=== PATIENT | female | born 1980 | race Caucasian/White ===

== ENCOUNTER → 2018-11-26 | Outpatient (CLI) | payer OTHER | END | disposition home or self-care (01) | LOC: RADECHMAIN 12:24 | PROVIDERS: ATTEND Family Medicine | DX: R00.0 Tachycardia, unspecified (principal) | CPT/HCPCS: 93270 ==

== ENCOUNTER → 2019-01-15 | Outpatient (CLI) | payer OTHER ==
--- NOTE | 2019-01-16 10:04 | ECHOF ---
Referral Reason:R00.0 tachycardia MEASUREMENTS -------- HEIGHT: 170.2 cm WEIGHT: 63.5 kg BP: RVIDd: 2.7 cm (< 3.3) IVSd: 0.7 cm (0.6 - 1.1) LVIDd: 4.7 cm (3.9 - 5.3) LVPWd: 1.0 cm (0.6 - 1.1) IVSs: 1.2 cm LVIDs: 2.8 cm LVPWs: 1.7 cm LAESV Index (A-L): 17.25 ml/m Ao Diam: 3.0 cm (2.0 - 3.7) AV Cusp: 2.1 cm (1.5 - 2.6) LA Diam: 3.7 cm (2.7 - 3.8) MV EXCURSION: 24.295 mm (> 18.000) MV EF SLOPE: 182 mm/s (70 - 150) EPSS: 0.5 cm MV E Alcides: 0.90 m/s MV DecT: 179 ms MV A Alcides: 0.60 m/s MV E/A Ratio: 1.48 RAP: 5.00 mmHg RVSP: 20.85 mmHg FINDINGS -------- Sinus rhythm. This was a technically good study. The left ventricular size is normal. Left ventricular wall thickness is normal. There is normal g lobal left ventricular contractility. Overall left ventricular systolic function is normal with, an EF between 60 - 65 %. The diastolic filling pattern is normal for the age of the patient 6.66. The right ventricle is normal in size. Normal LA size by volume 22+/-6 ml/m2. The right atrial size is normal. Interatrial and interventricular septum intact. The aortic valve is trileaflet and appears structurally normal. There is no evidence of aortic regu rgitation. There is no evidence of aortic stenosis. The mitral valve is normal. There is trace mitral regurgitation. Mild tricuspid regurgitation present. There is no evidence of pulmonary hypertension. The right v entricular systolic pressure, as measured by Doppler, is 20.85mmHg. Trace/mild (physiologic) pulmonic regurgitation. The aortic root size is normal. Normal inferior vena cava with normal inspiratory collapse consistent with estimated right atrial pre ssure of 5 mmHg. There is no pericardial effusion. CONCLUSIONS -------- 1. Sinus rhythm. 2. This was a technically good study. 3. The left ventricular size is normal. 4. Left ventricular wall thickness is normal. 5. There is normal global left ventricular contractility. 6. Overall left ventricular systolic function is normal with, an EF between 60 - 65 %. 7. The diastolic filling pattern is normal for the age of the patient 6.66 8. The right ventricle is normal in size. 9. Normal LA size by volume 22+/-6 ml/m2. 10. The right atrial size is normal. 11. Interatrial and interventricular septum intact. 12. The aortic valve is trileaflet and appears structurally normal. 13. There is no evidence of aortic regurgitation. 14. There is no evidence of aortic stenosis. 15. The mitral valve is normal. 16. There is trace mitral regurgitation. 17. Mild tricuspid regurgitation present. 18. There is no evidence of pulmonary hypertension. 19. The right ventricular systolic pressure, as measured by Doppler, is 20.85mmHg. 20. Trace/mild (physiologic) pulmonic regurgitation. 21. The aortic root size is normal. 22. Normal inferior vena cava with normal inspiratory collapse consistent with estimated right atrial pressure of 5 mmHg. 23. There is no pericardial effusion. CONTENT COORDINATOR: Davina Vega RDCS
== END | disposition home or self-care (01) ==
LOC: RADECHMAIN 14:51
PROVIDERS: ATTEND Family Medicine
DX: I07.1 Rheumatic tricuspid insufficiency (principal)
CPT/HCPCS: 93306

== ENCOUNTER → 2019-03-05 | Day surgery (SDC) | payer OTHER ==
[~2019-03-05] MED LIST: ERTAPENEM 1 GM in SODIUM CHLORIDE 0.9% 50 ML IVPB STA
[2019-03-05 11:33] VITALS: BP 117/63; PULSE 77; RESP 16; TEMP 98.1
== END ==
LOC: CATHCVL 11:17
PROVIDERS: ATTEND Internal Medicine Infectious Disease
DX: N12 Tubulo-interstitial nephritis, not specified as acute or chronic (principal); B96.20 Unspecified Escherichia coli [E. coli] as the cause of diseases classified elsewhere; F17.210 Nicotine dependence, cigarettes, uncomplicated; Z87.440 Personal history of urinary (tract) infections; Z79.891 Long term (current) use of opiate analgesic; Z79.899 Other long term (current) drug therapy; Z88.2 Allergy status to sulfonamides; Z92.29 Personal history of other drug therapy; Z90.710 Acquired absence of both cervix and uterus; Z98.890 Other specified postprocedural states
CPT/HCPCS: 36410; 76937; C1751; J1335

== ENCOUNTER 2019-05-19 08:52 | Emergency (ER) | payer OTHER ==
[2019-05-19 08:59] VITALS: RESP 18
[2019-05-19] MEDS ORDERED: LORazepam 1 MG TAB PO STA (09:09)
[2019-05-19 09:46] LABS: Appearance,Urine Clear (Clear); Bilirubin,Urine Negative (Negative); Blood,Urine Negative (Negative); Color,Urine Colorless; Glucose,Urine (UA) Negative (Negative); Ketones,Urine Negative (Negative); Leukocyte Esterase,Urine Negative (Negative); Nitrite,Urine Negative (Negative); Protein,Urine Negative (Negative); Specific Gravity,Urine 1.003 (1.001-1.035); Urobilinogen,Urine <2.0 mg/dL (<2.0)
--- NOTE | 2019-05-19 09:48 | XR ---
EXAMINATION TYPE: XR chest 2V DATE OF EXAM: 05/19/2019 COMPARISON: NONE TECHNIQUE: PA and lateral views submitted. HISTORY: Shortness of breath FINDINGS: The lungs are clear and there is no pneumothorax, pleural effusion, or focal pneumonia. No overt fa ilure. Heart size normal. IMPRESSION: 1. No acute process.
[2019-05-19 09:58] LABS: ALT 16 U/L (9-52); AST 18 U/L (14-36); African American GFR (CKD) >90 (>60 ml/min/1.73 sqM); Albumin 4.4 g/dL (3.5-5.0); Alkaline Phosphatase 57 U/L (38-126); Anion Gap 11 mmol/L; Blood Urea Nitrogen 15 mg/dL (7-17); Calcium 9.6 mg/dL (8.4-10.2); Carbon Dioxide 22 mmol/L (22-30); Chloride 109 mmol/L (98-107); Glucose 98 mg/dL (74-99); Magnesium 1.9 mg/dL (1.6-2.3); Non-African American GFR(CKD) >90 (>60 ml/min/1.73 sqM); Potassium 3.7 mmol/L (3.5-5.1); Sodium 142 mmol/L (137-145); Total Bilirubin 0.7 mg/dL (0.2-1.3); Total Protein 7.3 g/dL (6.3-8.2)
[2019-05-19 09:59] LABS: D-Dimer 0.47 mg/L FEU (<0.60); INR 0.9 (<1.2); Partial Thromboplastin Time 26.2 sec (22.0-30.0); Prothrombin Time 9.8 sec (9.0-12.0)
[2019-05-19 10:08] LABS: Basophils % (A) 0 %; Eosinophils # (A) 0.1 k/uL (0-0.7); Eosinophils % (A) 2 %; HCT 38.6 % (34.0-46.0); HGB 13.6 gm/dL (11.4-16.0); Lymphocytes % (A) 35 %; MCH 32.2 pg (25.0-35.0); MCHC 35.3 g/dL (31.0-37.0); MCV 91.3 fL (80.0-100.0); Mean Platelet Volume 11.1; Monocytes # (A) 0.3 k/uL (0-1.0); Monocytes % (A) 5 %; Neutrophils # (A) 3.2 k/uL (1.3-7.7); Neutrophils % (A) 56 %; Platelet Count 171 k/uL (150-450); RBC 4.23 m/uL (3.80-5.40); RDW 13.1 % (11.5-15.5); WBC 5.7 k/uL (3.8-10.6)
--- NOTE | 2019-05-19 10:57 | ED ---
General Adult HPI - General Source: patient, RN notes reviewed Mode of arrival: wheelchair Limitations: no limitations <Seb Patel - Last Filed: 05/19/19 10:50> <Enedelia Fernandes - Last Filed: 05/19/19 23:34> - General Chief complaint: Shortness of Breath Stated complaint: racing heart Time Seen by Provider: 05/19/19 09:00 - History of Present Illness Initial comments: 39-year-old female with a past medical history of hysterectomy presents to the emergency department for a chief shortness of breath. Patient states that she started to have shortness of breath 2-3 days ago. States that when she gets short of breath since feel lightheaded. She saw her doctor yesterday and had an EKG done which was normal. They had spoken about following up with cardiology. Patient denies any chest pain whatsoever. Denies symptoms worsening on exertion. Patient admits to smoking, denies previous heart problems, h yperlipidemia, hypercholesterolemia, hypertension. Patient states she feels very anxious lately. States that her 7 years ago and she has been raising her 3 kids on her own. States they are all going to different schools and she has had trouble keeping up with this.Patient has no other complaints at this time including chest pain, abdominal pain, nausea or vomiting, headache, or visual changes. (Seb Patel) - Related Data Home Medications Medication Instructions Recorded Confirmed No Known Home Medications 10/24/14 03/05/19 Allergies Allergy/AdvReac Type Severity Reaction Status Date / Time sulfamethoxazole Allergy Severe Swelling Verified 03/05/19 11:30 [From Bactrim] trimethoprim [From Bactrim] Allergy Severe Swelling Verified 03/05/19 11:30 Review of Systems ROS Other: All systems not noted in ROS Statement are negative. <Seb Patel - Last Filed: 05/19/19 10:50> ROS Other: All systems not noted in ROS Statement are negative. <Enedelia Fernandes - Last Filed: 05/19/19 23:34> ROS Statement: Those systems with pertinent positive or pertinent negative responses have been documented in the HPI. Past Medical History Additional Past Medical History / Comment(s): urine retention History of Any Multi-Drug Resistant Organisms: None Reported Past Surgical History: Hysterectomy Additional Past Surgical History / Comment(s): bladder sling Past Psychological History: No Psychological Hx Reported Smoking Status: Current every day smoker Past Alcohol Use History: None Reported, Heavy Past Drug Use History: Marijuana <Seb Patel - Last Filed: 05/19/19 10:50> General Exam Limitations: no limitations General appearance: alert, in no apparent distress Head exam: Present: atraumatic, normocephalic, normal inspection Eye exam: Present: normal appearance, PERRL, EOMI. Absent: scleral icterus, conjunctival injection, periorbital swelling ENT exam: Present: normal exam, mucous membranes moist Neck exam: Present: normal inspection, full ROM. Absent: tenderness, meningismus, lymphadenopathy Respiratory exam: Present: normal lung sounds bilaterally. Absent: respiratory distress, wheezes, rales, rhonchi, stridor Cardiovascular Exam: Present: regular rate, normal rhythm, normal heart sounds. Absent: systolic murmur, diastolic murmur, rubs, gallop, clicks GI/Abdominal exam: Present: soft, normal bowel sounds. Absent: distended, tenderness, guarding, rebound, rigid Neurological exam: Present: alert Psychiatric exam: Present: normal affect, normal mood <Seb Patel - Last Filed: 05/19/19 10:50> Course Vital Signs 05/19/19 05/19/19 08:53 11:09 Temperature 97.5 F L 98.5 F Pulse Rate 71 70 Respiratory 18 18 Rate Blood Pressure 113/78 110/65 O2 Sat by Pulse 100 98 Oximetry EKG Findings - EKG Comments: EKG Findings:: NSR, vent rate 63, GA interval 126, QRS 90, QTc 442 <Seb Patel - Last Filed: 05/19/19 10:50> Medical Decision Making - Lab Data Result diagrams: 05/19/19 09:28 05/19/19 09:28 <Seb Patel - Last Filed: 05/19/19 10:50> - Lab Data Result diagrams: 05/19/19 09:28 05/19/19 09:28 <Enedelia Fernandes - Last Filed: 05/19/19 23:34> - Medical Decision Making Vitals are stable. Patient is 100% on room air. Patient is not experiencing any respiratory distress. Respirations are even and unlabored. Patient is noted to be anxious about this and was given a milligram of Ativan. EKG unremarkable. No evidence of ST elevation or depression. CBC CMP and [place]. Troponin is negative. D-dimer is within normal limits. I do not have high suspicion for PE. Urinalysis does not show any evidence of infection. Patient has a history of hysterectomy. Chest x-ray shows no acute process. I do not suspect ACS. Patient is not having any chest pain, nausea, diaphoresis. Troponin is neg ative, this would be expected to be elevated as she has had symptoms for 2-3 days. Patient has a heart score of 2, low risk patient. Patient was reevaluated and is feeling much better. Recommended she follow up with primary care in 1-2 days. Recommended to return here if she has any worsening symptoms. (Seb Patel) I was available for consultation in the emergency department. The history and physical exam were done by the midlevel provider. I was consulted for this patients care. I reviewed the case with the midlevel provider and based on their presentation of the patient, I agree with the assessment, medical decision making and plan of care as documented. Chart was dictated using [employer] dictation software. Attempts were made to correct any dictation errors however some typographical errors may persist. (Enedelia Fernandes) - Lab Data Lab Results 05/19/19 05/19/19 05/19/19 Range/Units 09:28 09:28 09:28 WBC 5.7 (3.8-10.6) k/uL RBC 4.23 (3.80-5.40) m/uL Hgb 13.6 (11.4-16.0) gm/dL Hct 38.6 (34.0-46.0) % MCV 91.3 (80.0-100.0) fL MCH 32.2 (25.0-35.0) pg MCHC 35.3 (31.0-37.0) g/dL RDW 13.1 (11.5-15.5) % Plt Count 171 (150-450) k/uL Neutrophils % 56 % Lymphocytes % 35 % Monocytes % 5 % Eosinophils % 2 % Basophils % 0 % Neutrophils # 3.2 (1.3-7.7) k/uL Lymphocytes # 2.0 (1.0-4.8) k/uL Monocytes # 0.3 (0-1.0) k/uL Eosinophils # 0.1 (0-0.7) k/uL Basophils # 0.0 (0-0.2) k/uL PT 9.8 (9.0-12.0) sec INR 0.9 (<1.2) APTT 26.2 (22.0-30.0) sec D-Dimer 0.47 (<0.60) mg/L FEU Sodium 142 (137-145) mmol/L Potassium 3.7 (3.5-5.1) mmol/L Chloride 109 H (98-107) mmol/L Carbon Dioxide 22 (22-30) mmol/L Anion Gap 11 mmol/L BUN 15 (7-17) mg/dL Creatinine 0.75 (0.52-1.04) mg/dL Est GFR (CKD-EPI)AfAm >90 (>60 ml/min/1.73 sqM) Est GFR (CKD-EPI)NonAf >90 (>60 ml/min/1.73 sqM) Glucose 98 (74-99) mg/dL Calcium 9.6 (8.4-10.2) mg/dL Magnesium 1.9 (1.6-2.3) mg/dL Total Bilirubin 0.7 (0.2-1.3) mg/dL AST 18 (14-36) U/L ALT 16 (9-52) U/L Alkaline Phosphatase 57 (38-126) U/L Troponin I (0.000-0.034) ng/mL NT-Pro-B Natriuret Pep pg/mL Total Protein 7.3 (6.3-8.2) g/dL Albumin 4.4 (3.5-5.0) g/dL Urine Color Urine Appearance (Clear) Urine pH (5.0-8.0) Ur Specific [place] (1.001-1.035) Urine Protein (Negative) Urine Glucose (UA) (Negative) Urine Ketones (Negative) Urine Blood (Negative) Urine Nitrite (Negative) Urine Bilirubin (Negative) Urine Urobilinogen (<2.0) mg/dL Ur Leukocyte Esterase (Negative) 05/19/19 05/19/19 05/19/19 Range/Units 09:28 09:28 09:28 WBC (3.8-10.6) k/uL RBC (3.80-5.40) m/uL Hgb (11.4-16.0) gm/dL Hct (34.0-46.0) % MCV (80.0-100.0) fL MCH (25.0-35.0) pg MCHC (31.0-37.0) g/dL RDW (11.5-15.5) % Plt Count (150-450) k/uL Neutrophils % % Lymphocytes % % Monocytes % % Eosinophils % % Basophils % % Neutrophils # (1.3-7.7) k/uL Lymphocytes # (1.0-4.8) k/uL Monocytes # (0-1.0) k/uL Eosinophils # (0-0.7) k/uL Basophils # (0-0.2) k/uL PT (9.0-12.0) sec INR (<1.2) APTT (22.0-30.0) sec D-Dimer (<0.60) mg/L FEU Sodium (137-145) mmol/L Potassium (3.5-5.1) mmol/L Chloride (98-107) mmol/L Carbon Dioxide (22-30) mmol/L Anion Gap mmol/L BUN (7-17) mg/dL Creatinine (0.52-1.04) mg/dL Est GFR (CKD-EPI)AfAm (>60 ml/min/1.73 sqM) Est GFR (CKD-EPI)NonAf (>60 ml/min/1.73 sqM) Glucose (74-99) mg/dL Calcium (8.4-10.2) mg/dL Magnesium (1.6-2.3) mg/dL Total Bilirubin (0.2-1.3) mg/dL AST (14-36) U/L ALT (9-52) U/L Alkaline Phosphatase (38-126) U/L Troponin I <0.012 (0.000-0.034) ng/mL NT-Pro-B Natriuret Pep 30 pg/mL Total Protein (6.3-8.2) g/dL Albumin (3.5-5.0) g/dL Urine Color Colorless Urine Appearance Clear (Clear) Urine pH 7.0 (5.0-8.0) Ur Specific [place] 1.003 (1.001-1.035) Urine Protein Negative (Negative) Urine Glucose (UA) Negative (Negative) Urine Ketones Negative (Negative) Urine Blood Negative (Negative) Urine Nitrite Negative (Negative) Urine Bilirubin Negative (Negative) Urine Urobilinogen <2.0 (<2.0) mg/dL Ur Leukocyte Esterase Negative (Negative) Disposition Is patient prescribed a controlled substance at d/c from ED?: No Time of Disposition: 10:56 <Seb Patel - Last Filed: 05/19/19 10:50> <Enedelia Fernandes - Last Filed: 05/19/19 23:34> Clinical Impression: Mild shortness of breath, Anxiety Disposition: HOME SELF-CARE Condition: Good Instructions (If sedation given, give patient instructions): Shortness of Breath (ED) Additional Instructions: Please follow up with primary care in 1-2 days. Return to the emergency department if you have any worsening symptoms including chest pain or worsening shortness of breath. Referrals: Domingo Lynn Jr, DO [Primary Care Provider] - 1-2 days
[2019-05-19 11:10] VITALS: BP 110/65; PULSE 70; TEMP 98.5
== END 2019-05-19 11:09 | disposition home or self-care (01) ==
LOC: EC 08:52
DX: F41.9 Anxiety disorder, unspecified (principal); R06.02 Shortness of breath; F17.200 Nicotine dependence, unspecified, uncomplicated; Z88.1 Allergy status to other antibiotic agents; Z88.2 Allergy status to sulfonamides; Z90.710 Acquired absence of both cervix and uterus
CPT/HCPCS: 36415; 71046; 80053; 81003; 83735; 83880; 84484; 85025; 85379; 85610; 85730; 93005; 99285

== ENCOUNTER 2019-05-21 07:49 | Emergency (ER) | payer OTHER ==
[2019-05-21] MEDS ORDERED: IPRATROPIUM-ALBUTEROL 3 ML NEB INHALATION STA (08:12)
[2019-05-21] MEDS ORDERED: LORazepam 1 MG TAB PO STA (08:12)
--- NOTE | 2019-05-21 08:59 | ED ---
General Adult HPI - General Chief complaint: Shortness of Breath Stated complaint: SOB Time Seen by Provider: 05/21/19 08:07 Source: patient, RN notes reviewed Mode of arrival: ambulatory Limitations: no limitations - History of Present Illness Initial comments: 39-year-old female presents emergency Department chief complaint shortness of breath. Patient states that for the last few days that she's had increasing shortness breath. She states it started right after using her friend's right hand. Patient states that she uses one time because she was attempting to quit smoking. Patient states that she has not smoked or used elevate presents then. She has no complaints of chest pain or palpitations. Patient had extensive cardiac workup including been monitored with no findings. She states she does feel that she cannot get enough air in. She does admit this is making her very anxious because she states that she is a single mother with 3 kids and she is concerned. She has no complaints of fever, chills, nausea vomiting. - Related Data Home Medications Medication Instructions Recorded Confirmed Ciprofloxacin HCl [Cipro] 500 mg PO BID 05/21/19 05/21/19 Escitalopram [Lexapro] 10 mg PO DAILY 05/21/19 05/21/19 Previous Rx's Medication Instructions Recorded Albuterol Sulfate [Proair Hfa] 1 - 2 puff INHALATION Q4HR PRN #1 05/21/19 inhaler LORazepam [Ativan] 0.5 mg PO TID PRN 3 Days #9 tab 05/21/19 predniSONE 50 mg PO DAILY #5 tab 05/21/19 Allergies Allergy/AdvReac Type Severity Reaction Status Date / Time sulfamethoxazole Allergy Severe Swelling Verified 05/21/19 09:00 [From Bactrim] trimethoprim [From Bactrim] Allergy Severe Swelling Verified 05/21/19 09:00 Review of Systems ROS Statement: Those systems with pertinent positive or pertinent negative responses have been documented in the HPI. ROS Other: All systems not noted in ROS Statement are negative. Past Medical History Additional Past Medical History / Comment(s): urine retention History of Any Multi-Drug Resistant Organisms: None Reported Past Surgical History: Hysterectomy Additional Past Surgical History / Comment(s): bladder sling Past Psychological History: No Psychological Hx Reported Smoking Status: Current every day smoker Past Alcohol Use History: None Reported, Heavy Past Drug Use History: Marijuana General Exam Limitations: no limitations General appearance: alert, in no apparent distress, anxious Head exam: Present: atraumatic, normocephalic, normal inspection Eye exam: Present: normal appearance, PERRL, EOMI. Absent: scleral icterus, conjunctival injection, periorbital swelling ENT exam: Present: normal exam, normal oropharynx, mucous membranes moist Neck exam: Present: normal inspection, full ROM. Absent: tenderness, meningismus, lymphadenopathy Respiratory exam: Present: wheezes. Absent: normal lung sounds bilaterally, respiratory distress, rales, rhonchi, stridor Cardiovascular Exam: Present: regular rate, normal rhythm, normal heart sounds. Absent: systolic murmur, diastolic murmur, rubs, gallop, clicks Neurological exam: Present: alert, oriented X3, CN II-XII intact Psychiatric exam: Present: anxious Skin exam: Present: warm, dry, intact, normal color. Absent: rash Course Vital Signs 05/21/19 05/21/19 05/21/19 07:54 08:09 08:56 Temperature 97.6 F Pulse Rate 71 78 Respiratory 22 20 Rate Blood Pressure 146/71 O2 Sat by Pulse 98 Oximetry 05/21/19 05/21/19 09:11 09:26 Temperature 98.2 F Pulse Rate 74 72 Respiratory 18 Rate Blood Pressure 115/66 O2 Sat by Pulse 98 Oximetry Medical Decision Making - Medical Decision Making Chest x-ray does not reveal any evidence of infiltrate. Patient had complete workup prior to this which is negative labs including d-dimer and troponin EKG was unremarkable. Patient felt temperature DuoNeb treatment. Patient does have underlying anxiety which is also improved. Patient be discharged with follow- up. Return parameters were discussed. Disposition Clinical Impression: Acute bronchitis, Anxiety Disposition: HOME SELF-CARE Condition: Stable Instructions (If sedation given, give patient instructions): Bronchospasm (ED), Acute Bronchitis (ED) Additional Instructions: Please return to the Emergency Department if symptoms worsen or any other concerns. Prescriptions: LORazepam [Ativan] 0.5 mg PO TID PRN 3 Days #9 tab PRN Reason: Anxiety predniSONE 50 mg PO DAILY #5 tab Albuterol Sulfate [Proair Hfa] 1 - 2 puff INHALATION Q4HR PRN #1 inhaler PRN Reason: difficulty in breathing Is patient prescribed a controlled substance at d/c from ED?: Yes When asked, does pt state using other controlled substances?: No If prescribed controlled substance>3 days was MAPS reviewed?: Prescribed <3 Days Referrals: Domingo Lynn Jr, DO [Primary Care Provider] - 1-2 days Time of Disposition: 09:42
[2019-05-21 09:27] VITALS: BP 115/66; PULSE 72; RESP 18; TEMP 98.2
--- NOTE | 2019-05-21 09:28 | XR ---
EXAMINATION TYPE: XR chest 2V DATE OF EXAM: 05/21/2019 COMPARISON: 05/19/2019 HISTORY: Chest pain TECHNIQUE: Frontal and lateral views of the chest are obtained. FINDINGS: There is no focal air space opacity. No evidence for pneumothorax. No pleural effusion. The cardiac silhouette size is within normal limits. The osseous structures are grossly intact. IMPRESSION: 1. No acute cardiopulmonary process.
== END 2019-05-21 09:45 | disposition home or self-care (01) ==
LOC: EC 07:49
DX: J20.9 Acute bronchitis, unspecified (principal); F41.9 Anxiety disorder, unspecified; F17.200 Nicotine dependence, unspecified, uncomplicated; Z79.899 Other long term (current) drug therapy; Z88.1 Allergy status to other antibiotic agents; Z88.2 Allergy status to sulfonamides
CPT/HCPCS: 71046; 94640; 99285

== ENCOUNTER → 2019-06-04 | Outpatient (CLI) | payer OTHER ==
--- NOTE | 2019-06-04 12:03 | CT ---
EXAMINATION TYPE: CT abdomen pelvis wo con DATE OF EXAM: 06/04/2019 COMPARISON: None HISTORY: 39-year-old female with Left flank pain CT DLP: 635 mGycm. Automated exposure control for dose reduction was used. TECHNIQUE: Contiguous axial scanning of the abdomen and pelvis without IV contrast. Coronal and sagit chey reconstructions performed. FINDINGS: Heart normal size without pericardial effusion. Lung bases clear without pleural effusion. Noncontrast appearance of the liver, gallbladder, adrenal glands, spleen, and pancreas appear within normal limits. Kidneys show no nephrolithiasis or hydronephrosis. No dilated small bowel, free fluid, or free air. Allowing for noncontrast exam, no mesenteric or retr operitoneal lymphadenopathy is identified. Normal appendix. Moderate stool burden. No pericolonic inflammatory change. Bladder under distended. Uterus surgically absent. Multiple pelvic phleboliths. Small amount of cul-de-sac free fluid is present on the right. Right ovary not clearly identified. Ho wever, multilocular cystic structure within the left adnexa measures up to 5.9 x 5.6 x 3.3 cm. Nodula r soft tissue component measures 2.2 cm. No significant surrounding fat stranding is seen. Bones: No osseous destructive process. IMPRESSION: 1. Complex cystic lesion of the left ovary measuring up to 5.9 x 5.6 x 2.3 cm. No surrounding inflam mation which would make tubo-ovarian abscess and ovarian torsion less likely. Underlying hemorrhagic cysts or a complex cystic epithelial ovarian neoplasm are differential considerations. Further clinic al correlation recommended. Consider pelvic ultrasound possibly with Dopplers to further evaluate. 2. Small amount of cul-de-sac free fluid probably reactive. 3. Uterus is surgically absent. Right ovary not clearly identified. 4. No nephrolithiasis or hydronephrosis seen.
== END | disposition home or self-care (01) ==
LOC: RADCTMAIN 11:13
PROVIDERS: ATTEND Family Medicine
DX: N83.202 Unspecified ovarian cyst, left side (principal); Z90.710 Acquired absence of both cervix and uterus; Z88.2 Allergy status to sulfonamides
CPT/HCPCS: 74176

== ENCOUNTER → 2019-06-12 | Outpatient (CLI) | payer OTHER ==
--- NOTE | 2019-06-14 13:31 | US ---
EXAMINATION TYPE: US pelvis complete transvag plus Doppler DATE OF EXAM: 06/12/2019 COMPARISON: CT CLINICAL HISTORY: 39-year-old female N83.0 OVARIAN CYST. TECHNIQUE: Transabdominal sonographic images of the pelvis were acquired. Transvaginal sonographic images were medically necessary to better assess the following anatomy: left ovary. Color Doppler and spectral waveform analysis of the left ovarian arteries and veins. Date of LMP: 2011 secondary to hysterectomy FINDINGS: EXAM MEASUREMENTS: Uterus: Surgically absent Right Ovary: not identified Left Ovary: 5.2 x 2.7 x 3.8 cm BISTRO ATTENDANT NOTES: Patient states right ovary may be surgically absent, she is not sure. 1. Uterus: Surgically absent 2. Endometrium: Surgically absent 3. Right Ovary: not identified 4. Left Ovary: 3.3 x 2.2 x 3.6 cm simple appearing, mildly lobulated cyst. No internal complexity. Spectral, color and waveform doppler imaging shows good arterial and venous flow within the left ov bebe; there is no evidence for ovarian torsion in the left ovary. 5. Bilateral Adnexa: extensive bowel noted in right adnexa 6. Posterior cul-de-sac: no free fluid IMPRESSION: 1. A 3.6 cm simple cyst remains within the left ovary. The more heterogeneous area within the left ov bebe on the 06/04/2019 CT is not seen and may have resolved in the interval. Follow-up in 6 - 8 weeks to reassess. 2. No sonographic evidence for left ovarian torsion. 3. Status post hysterectomy. Right ovary not seen and may be surgically absent per the patient.
== END | disposition home or self-care (01) ==
LOC: RADUSWWP 16:07
PROVIDERS: ATTEND Family Medicine
DX: N83.292 Other ovarian cyst, left side (principal); Z90.710 Acquired absence of both cervix and uterus
CPT/HCPCS: 76830; 76856

== ENCOUNTER 2019-06-26 14:33 | Emergency (ER) | payer OTHER ==
[2019-06-26 14:38] VITALS: TEMP 97.2
[2019-06-26] MEDS ORDERED: ALBUTEROL NEBULIZED 2.5 MG/3 ML INHALATION STA (14:57)
[2019-06-26] MEDS ORDERED: IPRATROPIUM-ALBUTEROL 3 ML NEB INHALATION STA (14:57)
--- NOTE | 2019-06-26 15:00 | ED ---
General Adult HPI - General Chief complaint: Shortness of Breath Stated complaint: SINAN Time Seen by Provider: 06/26/19 14:42 Source: patient, RN notes reviewed, old records reviewed Mode of arrival: ambulatory Limitations: no limitations - History of Present Illness Initial comments: 39-year-old female presents from outpatient urgent care for evaluation of dyspnea and left-sided chest pain. Patient states she has had dyspnea for the past one month. She developed left-sided chest pain and left thoracic pain within the past 48 hours. She states she did initially feel quite anxious and had treated her symptoms to anxiety. However she is progressively more dyspneic and feels she is unable to get a full breath. She has no history of COPD or asthma. No history DVT or PE. She is not on contraceptives medications. She has been seen by her primary care physician regarding these symptoms and was given albuterol. She is a smoker and has recently cut back to 5 cigarettes daily. No fever. No significant cough. No history of CAD. - Related Data Home Medications Medication Instructions Recorded Confirmed Ciprofloxacin HCl [Cipro] 500 mg PO BID 05/21/19 05/21/19 Escitalopram [Lexapro] 10 mg PO DAILY 05/21/19 05/21/19 Previous Rx's Medication Instructions Recorded Albuterol Sulfate [Proair Hfa] 1 - 2 puff INHALATION Q4HR PRN #1 05/21/19 inhaler LORazepam [Ativan] 0.5 mg PO TID 3 Days #9 tab 05/21/19 LORazepam [Ativan] 0.5 mg PO TID PRN 3 Days #9 tab 05/21/19 predniSONE 50 mg PO DAILY #5 tab 05/21/19 Albuterol Inhaler [Ventolin Hfa 1 - 2 puff INHALATION Q4HR PRN #1 06/26/19 Inhaler] inhaler methylPREDNISolone Dose Pack 4 mg PO DIRECTED #21 package 06/26/19 [Medrol Dose Pack] Allergies Allergy/AdvReac Type Severity Reaction Status Date / Time sulfamethoxazole Allergy Severe Swelling Verified 06/26/19 14:38 [From Bactrim] trimethoprim [From Bactrim] Allergy Severe Swelling Verified 06/26/19 14:38 Review of Systems ROS Statement: Those systems with pertinent positive or pertinent negative responses have been documented in the HPI. ROS Other: All systems not noted in ROS Statement are negative. Past Medical History Additional Past Medical History / Comment(s): urine retention History of Any Multi-Drug Resistant Organisms: None Reported Past Surgical History: Hysterectomy Additional Past Surgical History / Comment(s): bladder sling Past Psychological History: Anxiety Smoking Status: Current every day smoker Past Alcohol Use History: None Reported, Heavy Past Drug Use History: Marijuana General Exam Limitations: no limitations General appearance: alert, in no apparent distress Head exam: Present: atraumatic, normocephalic Eye exam: Present: normal appearance, PERRL ENT exam: Present: normal exam Neck exam: Present: normal inspection. Absent: tenderness, meningismus Respiratory exam: Present: decreased breath sounds, other (Patient able to speak in full sentences without dyspnea, she does have decreased air entry by laterally on lung auscultation, no wheezing). Absent: respiratory distress, wheezes Cardiovascular Exam: Present: regular rate, normal rhythm GI/Abdominal exam: Present: soft. Absent: distended, tenderness, guarding Extremities exam: Present: normal inspection, normal capillary refill. Absent: pedal edema, calf tenderness Neurological exam: Present: alert, oriented X3, CN II-XII intact. Absent: motor sensory deficit Psychiatric exam: Present: anxious Skin exam: Present: warm, dry, intact. Absent: cyanosis, diaphoretic Course Vital Signs 06/26/19 06/26/19 06/26/19 14:35 15:31 16:02 Temperature 97.2 F L Pulse Rate 95 76 Respiratory 20 18 Rate Blood Pressure 130/79 O2 Sat by Pulse 100 Oximetry 06/26/19 16:19 Temperature Pulse Rate 93 Respiratory Rate Blood Pressure O2 Sat by Pulse Oximetry EKG Findings - EKG Comments: EKG Findings:: EKG: Normal sinus rhythm, rate of 82, [place] interval 1:30, QRS duration 88, QTC 469, no ST segment elevation or depression Medical Decision Making - Medical Decision Making 39-year-old female presenting with dyspnea. Patient had been sent from urgent care for evaluation of dyspnea. She did have some associated left-sided chest pain. Which was atypical. Patient has no history of DVT or PE. No history of CAD. She is a current smoker although she is cutting back. No history of asthma. She has diminished lung sounds bilaterally. No wheezing. No hypoxia, no tachycardia. Workup was initiated, she has a normal sinus rhythm EKG with no ischemic changes. She has normal CBC, normal CMP, negative troponin and BNP. She has a mildly elevated d-dimer at 0.59. She does receive CT angiography to rule out pulmonary embolism. This is negative for pulmonary was in, no acute findings. She has close outpatient follow-up. She may require pulmonology consultation for pulmonary function tests. She will be prescribed albuterol and a short course of steroids as she states this did improve her dyspnea. - Lab Data Result diagrams: 06/26/19 15:10 06/26/19 15:10 Lab Results 06/26/19 06/26/19 06/26/19 Range/Units 15:10 15:10 15:10 WBC 7.3 (3.8-10.6) k/uL RBC 4.18 (3.80-5.40) m/uL Hgb 13.1 (11.4-16.0) gm/dL Hct 39.7 (34.0-46.0) % MCV 95.1 (80.0-100.0) fL MCH 31.5 (25.0-35.0) pg MCHC 33.1 (31.0-37.0) g/dL RDW 12.5 (11.5-15.5) % Plt Count 201 (150-450) k/uL Neutrophils % 54 % Lymphocytes % 32 % Monocytes % 6 % Eosinophils % 3 % Basophils % 3 % Neutrophils # 4.0 (1.3-7.7) k/uL Lymphocytes # 2.3 (1.0-4.8) k/uL Monocytes # 0.4 (0-1.0) k/uL Eosinophils # 0.2 (0-0.7) k/uL Basophils # 0.2 (0-0.2) k/uL PT 9.5 (9.0-12.0) sec INR 0.9 (<1.2) APTT 24.6 (22.0-30.0) sec D-Dimer 0.59 (<0.60) mg/L FEU Sodium 140 (137-145) mmol/L Potassium 4.1 (3.5-5.1) mmol/L Chloride 109 H (98-107) mmol/L Carbon Dioxide 25 (22-30) mmol/L Anion Gap 6 mmol/L BUN 17 (7-17) mg/dL Creatinine 0.65 (0.52-1.04) mg/dL Est GFR (CKD-EPI)AfAm >90 (>60 ml/min/1.73 sqM) Est GFR (CKD-EPI)NonAf >90 (>60 ml/min/1.73 sqM) Glucose 89 (74-99) mg/dL Calcium 9.4 (8.4-10.2) mg/dL Total Bilirubin 0.4 (0.2-1.3) mg/dL AST 20 (14-36) U/L ALT 13 (4-34) U/L Alkaline Phosphatase 65 (38-126) U/L Troponin I (0.000-0.034) ng/mL NT-Pro-B Natriuret Pep pg/mL Total Protein 6.9 (6.3-8.2) g/dL Albumin 4.1 (3.5-5.0) g/dL 06/26/19 06/26/19 Range/Units 15:10 15:10 WBC (3.8-10.6) k/uL RBC (3.80-5.40) m/uL Hgb (11.4-16.0) gm/dL Hct (34.0-46.0) % MCV (80.0-100.0) fL MCH (25.0-35.0) pg MCHC (31.0-37.0) g/dL RDW (11.5-15.5) % Plt Count (150-450) k/uL Neutrophils % % Lymphocytes % % Monocytes % % Eosinophils % % Basophils % % Neutrophils # (1.3-7.7) k/uL Lymphocytes # (1.0-4.8) k/uL Monocytes # (0-1.0) k/uL Eosinophils # (0-0.7) k/uL Basophils # (0-0.2) k/uL PT (9.0-12.0) sec INR (<1.2) APTT (22.0-30.0) sec D-Dimer (<0.60) mg/L FEU Sodium (137-145) mmol/L Potassium (3.5-5.1) mmol/L Chloride (98-107) mmol/L Carbon Dioxide (22-30) mmol/L Anion Gap mmol/L BUN (7-17) mg/dL Creatinine (0.52-1.04) mg/dL Est GFR (CKD-EPI)AfAm (>60 ml/min/1.73 sqM) Est GFR (CKD-EPI)NonAf (>60 ml/min/1.73 sqM) Glucose (74-99) mg/dL Calcium (8.4-10.2) mg/dL Total Bilirubin (0.2-1.3) mg/dL AST (14-36) U/L ALT (4-34) U/L Alkaline Phosphatase (38-126) U/L Troponin I <0.012 (0.000-0.034) ng/mL NT-Pro-B Natriuret Pep 45 pg/mL Total Protein (6.3-8.2) g/dL Albumin (3.5-5.0) g/dL Disposition Clinical Impression: Dyspnea Disposition: HOME SELF-CARE Condition: Good Instructions (If sedation given, give patient instructions): Bronchospasm (ED), Dyspnea (ED) Prescriptions: methylPREDNISolone Dose Pack [Medrol Dose Pack] 4 mg PO DIRECTED #21 package Albuterol Inhaler [Ventolin Hfa Inhaler] 1 - 2 puff INHALATION Q4HR PRN #1 inhaler PRN Reason: Shortness Of Breath Is patient prescribed a controlled substance at d/c from ED?: No Referrals: Domingo Lynn Jr, DO [Primary Care Provider] - 1-2 days Alan Love MD [STAFF PHYSICIAN] - 1-2 days Time of Disposition: 16:32
[2019-06-26 15:27] LABS: Basophils # (A) 0.2 k/uL (0-0.2); Basophils % (A) 3 %; Eosinophils # (A) 0.2 k/uL (0-0.7); Eosinophils % (A) 3 %; HCT 39.7 % (34.0-46.0); HGB 13.1 gm/dL (11.4-16.0); Lymphocytes # (A) 2.3 k/uL (1.0-4.8); Lymphocytes % (A) 32 %; MCH 31.5 pg (25.0-35.0); MCHC 33.1 g/dL (31.0-37.0); MCV 95.1 fL (80.0-100.0); Monocytes # (A) 0.4 k/uL (0-1.0); Monocytes % (A) 6 %; Neutrophils % (A) 54 %; Platelet Count 201 k/uL (150-450); RBC 4.18 m/uL (3.80-5.40); RDW 12.5 % (11.5-15.5); WBC 7.3 k/uL (3.8-10.6)
[2019-06-26 15:34] VITALS: RESP 18
--- NOTE | 2019-06-26 15:34 | XR ---
EXAMINATION TYPE: XR chest 2V DATE OF EXAM: 06/26/2019 COMPARISON: 05/21/2019 HISTORY: Shortness of breath for one month TECHNIQUE: Frontal and lateral views of the chest are obtained. FINDINGS: There is no focal air space opacity, pleural effusion, or pneumothorax seen. The cardiac silhouette size is within normal limits. The osseous structures are intact. Minimal degenerative ch anges of the thoracic spine. IMPRESSION: No acute cardiopulmonary process.
[2019-06-26 15:39] LABS: INR 0.9 (<1.2)
[2019-06-26 15:40] LABS: D-Dimer 0.59 mg/L FEU (<0.60); Partial Thromboplastin Time 24.6 sec (22.0-30.0); Prothrombin Time 9.5 sec (9.0-12.0)
[2019-06-26 15:41] LABS: ALT 13 U/L (4-34); AST 20 U/L (14-36); African American GFR (CKD) >90 (>60 ml/min/1.73 sqM); Albumin 4.1 g/dL (3.5-5.0); Alkaline Phosphatase 65 U/L (38-126); Anion Gap 6 mmol/L; Blood Urea Nitrogen 17 mg/dL (7-17); Calcium 9.4 mg/dL (8.4-10.2); Carbon Dioxide 25 mmol/L (22-30); Chloride 109 mmol/L (98-107); Glucose 89 mg/dL (74-99); Non-African American GFR(CKD) >90 (>60 ml/min/1.73 sqM); Potassium 4.1 mmol/L (3.5-5.1); Sodium 140 mmol/L (137-145); Total Bilirubin 0.4 mg/dL (0.2-1.3); Total Protein 6.9 g/dL (6.3-8.2)
--- NOTE | 2019-06-26 16:20 | CT ---
CT CHEST FOR PULMONARY EMBOLISM. EXAMINATION TYPE: CT angio chest DATE OF EXAM: 06/26/2019 INDICATION: Difficulty breathing. CT DLP: 305.1 mGycm, Automated exposure control for dose reduction was used. CONTRAST: Patient injected with 100 mL of Isovue 370. COMPARISON: None TECHNIQUE: CT of the chest is performed on a spiral scan at 2 mm thick sections. Study is performed with intravenous contrast timed for evaluation for pulmonary embolism. This will limit additional po rtions of the evaluation. 3-D MIP images reconstructed by the technologist are reviewed on the compu ter in the coronal and sagittal planes. FINDINGS: No persistent filling defects are evident to suggest an acute pulmonary embolism. No mediastinal or hilar adenopathy enlarged by CT criteria is evident. The ascending aorta diameter at the level of the main pulmonary artery is 3. cm. The main pulmonary artery diameter at the bifurc ation is 2.4 cm. Lung windows are clear. Limited CT section through the upper abdomen are unremarkable. IMPRESSIONS: 1. No acute pulmonary embolism
[2019-06-26 16:52] VITALS: BP 101/77; PULSE 84
== END 2019-06-26 16:52 | disposition home or self-care (01) ==
LOC: EC 14:33
DX: R06.00 Dyspnea, unspecified (principal); R06.02 Shortness of breath; R07.9 Chest pain, unspecified; F41.9 Anxiety disorder, unspecified; F17.210 Nicotine dependence, cigarettes, uncomplicated; Z79.899 Other long term (current) drug therapy; Z88.1 Allergy status to other antibiotic agents; Z88.2 Allergy status to sulfonamides
CPT/HCPCS: 36415; 94640; 93005; 85379; 83880; 80053; 84484; 85025; 85610; 85730; 71046; 71275; 99285; Q9967

== ENCOUNTER 2019-06-27 09:37 | Emergency (ER) | payer OTHER ==
[2019-06-27] MEDS ORDERED: diphenhydrAMINE 50 MG/ML 1 ML VIAL IVP STA (10:05)
[2019-06-27] MEDS ORDERED: FAMOTIDINE 20 MG/2 ML VIAL IV STA (10:05)
[2019-06-27] MEDS ORDERED: methylPREDNISolone SOD SUCCI 125 MG/2 ML VIAL IV STA (10:05)
[2019-06-27] MEDS ORDERED: SODIUM CHLORIDE 0.9% 1,000 ML IV STA (10:06)
--- NOTE | 2019-06-27 10:29 | ED ---
Allergic Reaction HPI - General Chief complaint: Allergic Reaction Stated complaint: allergic reaction Time Seen by Provider: 06/27/19 09:56 Source: patient Limitations: no limitations - History of Present Illness Initial Comments: Patient is a 39-year-old female presenting to emergency Department with complaints of having a possible ALLERGIC reaction. Patient states she was in the ER yesterday and had a CTA performed. Patient states she started having itching and redness late last night and did take a Benadryl sometime during the night. Patient states her symptoms have progressed and she is still itching and having burning around her chest as well as swelling around her eyes. Patient states she's never had a reaction like this before. Her only other ALLERGIES to Bactrim. Patient denies any chest pains, shortness of breath, abdominal pain, nausea, vomiting. She has no other complaints at this time. Upon arrival to ER, her vital signs are stable. - Related Data Home Medications Medication Instructions Recorded Confirmed Ciprofloxacin HCl [Cipro] 500 mg PO BID 05/21/19 05/21/19 Escitalopram [Lexapro] 10 mg PO DAILY 05/21/19 05/21/19 Previous Rx's Medication Instructions Recorded Albuterol Sulfate [Proair Hfa] 1 - 2 puff INHALATION Q4HR PRN #1 05/21/19 inhaler LORazepam [Ativan] 0.5 mg PO TID 3 Days #9 tab 05/21/19 LORazepam [Ativan] 0.5 mg PO TID PRN 3 Days #9 tab 05/21/19 predniSONE 50 mg PO DAILY #5 tab 05/21/19 Albuterol Inhaler [Ventolin Hfa 1 - 2 puff INHALATION Q4HR PRN #1 06/26/19 Inhaler] inhaler methylPREDNISolone Dose Pack 4 mg PO DIRECTED #21 package 06/26/19 [Medrol Dose Pack] methylPREDNISolone [Medrol Dose 4 mg PO DIRECTED #1 pack 06/27/19 Pack] Allergies Allergy/AdvReac Type Severity Reaction Status Date / Time sulfamethoxazole Allergy Severe Swelling Verified 06/27/19 09:44 [From Bactrim] trimethoprim [From Bactrim] Allergy Severe Swelling Verified 06/27/19 09:44 Review of Systems ROS Statement: Those systems with pertinent positive or pertinent negative responses have been documented in the HPI. ROS Other: All systems not noted in ROS Statement are negative. Past Medical History Additional Past Medical History / Comment(s): urine retention History of Any Multi-Drug Resistant Organisms: None Reported Past Surgical History: Hysterectomy Additional Past Surgical History / Comment(s): bladder sling Past Psychological History: Anxiety Smoking Status: Current every day smoker Past Alcohol Use History: None Reported Past Drug Use History: None Reported, Marijuana General Exam - General Exam Comments Initial Comments: GENERAL: Well-appearing, well-nourished and in no acute distress. HEAD: Atraumatic, normocephalic. EYES: Pupils equal round and reactive to light, extraocular movements intact, sclera anicteric, conjunctiva are normal. Patient has some mild swelling noted around bilateral eyes. ENT: TMs normal, nares patent, oropharynx clear without exudates. Moist mucous membranes. NECK: Normal range of motion, supple without lymphadenopathy or JVD. LUNGS: Breath sounds clear to auscultation bilaterally and equal. No wheezes rales or rhonchi. HEART: Regular rate and rhythm without murmurs, rubs or gallops. ABDOMEN: Soft, nontender, normoactive bowel sounds. No guarding, no rebound. No masses appreciated. : Deferred EXTREMITIES: Normal range of motion, no pitting or edema. No clubbing or cyanosis. NEUROLOGICAL: Normal speech, normal gait. PSYCH: Normal mood, normal affect. SKIN: Warm, Dry, normal turgor,. Patient has a blanching, erythematous rash along her entire chest extending up into her neck and her face. Limitations: no limitations Course Vital Signs 06/27/19 06/27/19 09:44 09:54 Temperature 98 F Pulse Rate 95 Respiratory 18 20 Rate Blood Pressure 98/67 O2 Sat by Pulse 100 Oximetry Medical Decision Making - Medical Decision Making Patient is a 39-year-old female presenting with possible ALLERGIC reaction to IV contrast that was performed yesterday. Vital signs are stable upon arrival. Patient has a blanching erythematous rash on her chest extending up to her neck and face. This consistent with an ALLERGIC rash. Patient was given IV Benadryl, steroids, Pepcid. She reports improvement in her symptoms. I discussed this is most likely reaction to the IV contrast. Patient will continue Benadryl as needed for continued itching. Patient will be given prescription for steroids if symptoms persist. She is in agreement with this plan of care. She is stable for discharge at this time. Parameters were discussed with the patient and she verbalized understanding. Case discussed with Dr. Andrade. - Lab Data Result diagrams: 06/27/19 10:10 06/27/19 10:10 Lab Results 06/27/19 06/27/19 Range/Units 10:10 10:10 WBC 6.8 (3.8-10.6) k/uL RBC 4.29 (3.80-5.40) m/uL Hgb 13.6 (11.4-16.0) gm/dL Hct 40.6 (34.0-46.0) % MCV 94.7 (80.0-100.0) fL MCH 31.6 (25.0-35.0) pg MCHC 33.4 (31.0-37.0) g/dL RDW 12.5 (11.5-15.5) % Plt Count 178 (150-450) k/uL Neutrophils % 80 % Lymphocytes % 12 % Monocytes % 3 % Eosinophils % 4 % Basophils % 1 % Neutrophils # 5.5 (1.3-7.7) k/uL Lymphocytes # 0.8 L (1.0-4.8) k/uL Monocytes # 0.2 (0-1.0) k/uL Eosinophils # 0.3 (0-0.7) k/uL Basophils # 0.1 (0-0.2) k/uL Sodium 138 (137-145) mmol/L Potassium 3.8 (3.5-5.1) mmol/L Chloride 105 (98-107) mmol/L Carbon Dioxide 26 (22-30) mmol/L Anion Gap 7 mmol/L BUN 13 (7-17) mg/dL Creatinine 0.65 (0.52-1.04) mg/dL Est GFR (CKD-EPI)AfAm >90 (>60 ml/min/1.73 sqM) Est GFR (CKD-EPI)NonAf >90 (>60 ml/min/1.73 sqM) Glucose 126 H (74-99) mg/dL Calcium 8.7 (8.4-10.2) mg/dL Total Bilirubin 0.8 (0.2-1.3) mg/dL AST 21 (14-36) U/L ALT 13 (4-34) U/L Alkaline Phosphatase 57 (38-126) U/L Total Protein 6.5 (6.3-8.2) g/dL Albumin 3.9 (3.5-5.0) g/dL Disposition Clinical Impression: Allergic reaction to contrast dye Disposition: HOME SELF-CARE Condition: Stable Instructions (If sedation given, give patient instructions): General Allergic Reaction (ED) Additional Instructions: Please return to the Emergency Department if symptoms worsen or any other concerns. May repeat Benadryl dose tonight if itching or rash increases. Take steroids if rash continues. Prescriptions: methylPREDNISolone [Medrol Dose Pack] 4 mg PO DIRECTED #1 pack Is patient prescribed a controlled substance at d/c from ED?: No Referrals: Domingo Lynn Jr, [Primary Care Provider] - 1-2 days
[2019-06-27 10:49] LABS: Basophils # (A) 0.1 k/uL (0-0.2); Basophils % (A) 1 %; Eosinophils # (A) 0.3 k/uL (0-0.7); Eosinophils % (A) 4 %; HCT 40.6 % (34.0-46.0); HGB 13.6 gm/dL (11.4-16.0); Lymphocytes # (A) 0.8 k/uL (1.0-4.8); Lymphocytes % (A) 12 %; MCH 31.6 pg (25.0-35.0); MCHC 33.4 g/dL (31.0-37.0); MCV 94.7 fL (80.0-100.0); Mean Platelet Volume 10.7; Monocytes # (A) 0.2 k/uL (0-1.0); Monocytes % (A) 3 %; Neutrophils # (A) 5.5 k/uL (1.3-7.7); Neutrophils % (A) 80 %; Platelet Count 178 k/uL (150-450); RBC 4.29 m/uL (3.80-5.40); RDW 12.5 % (11.5-15.5); WBC 6.8 k/uL (3.8-10.6)
[2019-06-27 11:02] LABS: ALT 13 U/L (4-34); AST 21 U/L (14-36); African American GFR (CKD) >90 (>60 ml/min/1.73 sqM); Albumin 3.9 g/dL (3.5-5.0); Alkaline Phosphatase 57 U/L (38-126); Anion Gap 7 mmol/L; Blood Urea Nitrogen 13 mg/dL (7-17); Calcium 8.7 mg/dL (8.4-10.2); Carbon Dioxide 26 mmol/L (22-30); Chloride 105 mmol/L (98-107); Glucose 126 mg/dL (74-99); Non-African American GFR(CKD) >90 (>60 ml/min/1.73 sqM); Potassium 3.8 mmol/L (3.5-5.1); Sodium 138 mmol/L (137-145); Total Bilirubin 0.8 mg/dL (0.2-1.3); Total Protein 6.5 g/dL (6.3-8.2)
[2019-06-27 12:01] VITALS: BP 95/58; PULSE 87; RESP 18; TEMP 97.7
== END 2019-06-27 12:02 | disposition home or self-care (01) ==
LOC: EC 09:37
DX: R21 Rash and other nonspecific skin eruption (principal); T50.8X5A Adverse effect of diagnostic agents, initial encounter; F41.9 Anxiety disorder, unspecified; F17.200 Nicotine dependence, unspecified, uncomplicated; Z88.2 Allergy status to sulfonamides; Z79.899 Other long term (current) drug therapy; Z87.448 Personal history of other diseases of urinary system
CPT/HCPCS: 99283; 96374; 96375 ×2; 96361; 36415; 80053; 85025; J1200; J2930

== ENCOUNTER 2019-07-12 00:31 | Emergency (ER) | payer OTHER ==
[2019-07-12 01:02] LABS: Appearance,Urine Cloudy (Clear); Bilirubin,Urine Negative (Negative); Blood,Urine Negative (Negative); Color,Urine Yellow; Glucose,Urine (UA) Negative (Negative); Ketones,Urine Negative (Negative); Leukocyte Esterase,Urine Trace (Negative); Mucus,Urine Occasional /hpf; Nitrite,Urine Negative (Negative); Protein,Urine Trace (Negative); RBC,Urine 3 /hpf (0-5); Specific Gravity,Urine 1.026 (1.001-1.035); Squamous Epithelial Cell,Urine 6 /hpf (0-4); WBC,Urine 2 /hpf (0-5)
--- NOTE | 2019-07-12 01:34 | ED ---
Abdominal Pain HPI - General Chief Complaint: Abdominal Pain Stated Complaint: Abd Pain, Vomiting Time Seen by Provider: 07/12/19 00:42 Source: patient Mode of arrival: wheelchair Limitations: no limitations - History of Present Illness Initial Comments: Angelita is a 39-year-old female who presents the ER today for evaluation of 2 hours of right lower quadrant pain, nausea vomiting. Patient reports she's been constipated for a few days however she had a bowel movement today. She states approximately 2 hours prior to arrival she developed nausea and vomiting and vomited for approximately one hour. Vomiting is stop the nausea has subsided but she continues to have a dull pain in her right lower quadrant. Patient states she thinks it's related to constipation but hasn't had pain like this in the past. She has no history of kidney stones. She does have a history of palpitated UTI and pyelonephritis for which she was hospitalized in March. She does still have her ovaries and appendix. She is status post hysterectomy and cholecystectomy. - Related Data Home Medications Medication Instructions Recorded Confirmed Ciprofloxacin HCl [Cipro] 500 mg PO BID 05/21/19 05/21/19 Escitalopram [Lexapro] 10 mg PO DAILY 05/21/19 05/21/19 Previous Rx's Medication Instructions Recorded Albuterol Sulfate [Proair Hfa] 1 - 2 puff INHALATION Q4HR PRN #1 05/21/19 inhaler LORazepam [Ativan] 0.5 mg PO TID 3 Days #9 tab 05/21/19 LORazepam [Ativan] 0.5 mg PO TID PRN 3 Days #9 tab 05/21/19 predniSONE 50 mg PO DAILY #5 tab 05/21/19 Albuterol Inhaler [Ventolin Hfa 1 - 2 puff INHALATION Q4HR PRN #1 06/26/19 Inhaler] inhaler methylPREDNISolone Dose Pack 4 mg PO DIRECTED #21 package 06/26/19 [Medrol Dose Pack] methylPREDNISolone [Medrol Dose 4 mg PO DIRECTED #1 pack 06/27/19 Pack] Allergies Allergy/AdvReac Type Severity Reaction Status Date / Time sulfamethoxazole Allergy Severe Swelling Verified 07/12/19 00:39 [From Bactrim] trimethoprim [From Bactrim] Allergy Severe Swelling Verified 07/12/19 00:39 iodine AdvReac Swelling Verified 02/02/20 02:07 Review of Systems ROS Statement: Those systems with pertinent positive or pertinent negative responses have been documented in the HPI. ROS Other: All systems not noted in ROS Statement are negative. Past Medical History Additional Past Medical History / Comment(s): urine retention History of Any Multi-Drug Resistant Organisms: None Reported Past Surgical History: Hysterectomy Additional Past Surgical History / Comment(s): bladder sling Past Psychological History: Anxiety Smoking Status: Current every day smoker Past Alcohol Use History: None Reported Past Drug Use History: None Reported, Marijuana General Exam - General Exam Comments Initial Comments: Physical Exam GENERAL: Patient is well-developed and well-nourished. Patient appears uncomfortable HENT: Normocephalic, Atraumatic. EYES: PERRL, EOMI PULMONARY: Unlabored respirations. CARDIOVASCULAR: RRR Warm and well perfused extremities ABDOMEN: Non-distended Tenderness to palpation in the right lower quadrant, rebound tenderness noted SKIN: No rashes or bruising : Deferred NEUROLOGIC: Alert and oriented Normal speech Normal gait MUSCULOSKELETAL: Moving all extremities with no apparent injury PSYCHIATRIC: No SI/HI Limitations: no limitations Course Vital Signs 07/12/19 07/12/19 00:37 06:30 Temperature 97.8 F 97.9 F Pulse Rate 68 67 Respiratory 18 21 Rate Blood Pressure 110/51 93/61 O2 Sat by Pulse 100 98 Oximetry Medical Decision Making - Medical Decision Making The patient was seen and evaluated, history is obtained from the patient Initially urinalysis is obtained to evaluate for any possible urinary tract infection as the patient's pain seemed to be low pelvic but this was negative for infection, labs and imaging were ordered Patient refusing CT with IV contrast that she states she has an iodine ALLERGY and cannot take steroids because they make her agitated therefore will not take the prep for CT Discussed the patient option for CT with no IV contrast only oral contrast, patient uncertain if she wants to wait as the [id number] oral contrast is a 4 hour prep I had a long discussion with the patient regarding her leukocytosis, right lower quadrant tenderness and concern for possible appendicitis, I advised the patient given that she has a relatively low BMI there is possibility that CT with no oral or IV contrast would result a false-negative scan. At this point patient is agreeable to oral contrast. Patient tolerated oral contrast. Computed tomography scan was performed and revealed a normal appendix normal bowel, some fullness in the pancreatic head which was discussed with the patient as well as bilateral ovarian cysts with some signs of leading her on the right ovary. Discussed the patient she likely has a hemorrhagic ovarian cyst. Patient reports she's been following with her roof bolter operator about ovarian cyst had a CT last month and is scheduled to have a repeat this month. I advised her to discuss with her roof bolter operator option for not repeating CT as she had one done today or discussing possible MRI as its recommend she have one due to the incidental finding of her pancreas. Patient is breast understanding. Patient did complain of some pain after going to CT to was willing to wait on pain medications as we didn't want to give Toradol if she had an operative condition. Upon review of the CT determined she had a ruptured ovarian cysts and Toradol is appropriate treatment. This was ordered and given. Patient much more comfortable now comfortable with plan for discharge home at this time. - Lab Data Result diagrams: 07/12/19 01:56 07/12/19 01:56 Lab Results 07/12/19 07/12/19 07/12/19 Range/Units 00:53 01:56 01:56 WBC 15.9 H (3.8-10.6) k/uL RBC 3.97 (3.80-5.40) m/uL Hgb 12.7 (11.4-16.0) gm/dL Hct 37.6 (34.0-46.0) % MCV 94.9 (80.0-100.0) fL MCH 32.0 (25.0-35.0) pg MCHC 33.8 (31.0-37.0) g/dL RDW 12.1 (11.5-15.5) % Plt Count 177 (150-450) k/uL Neutrophils % 84 % Lymphocytes % 9 % Monocytes % 3 % Eosinophils % 2 % Basophils % 1 % Neutrophils # 13.3 H (1.3-7.7) k/uL Lymphocytes # 1.5 (1.0-4.8) k/uL Monocytes # 0.5 (0-1.0) k/uL Eosinophils # 0.3 (0-0.7) k/uL Basophils # 0.2 (0-0.2) k/uL Sodium 136 L (137-145) mmol/L Potassium 4.2 (3.5-5.1) mmol/L Chloride 105 (98-107) mmol/L Carbon Dioxide 27 (22-30) mmol/L Anion Gap 4 mmol/L BUN 20 H (7-17) mg/dL Creatinine 0.68 (0.52-1.04) mg/dL Est GFR (CKD-EPI)AfAm >90 (>60 ml/min/1.73 sqM) Est GFR (CKD-EPI)NonAf >90 (>60 ml/min/1.73 sqM) Glucose 109 H (74-99) mg/dL Calcium 9.1 (8.4-10.2) mg/dL Total Bilirubin 0.3 (0.2-1.3) mg/dL AST 18 (14-36) U/L ALT 10 (4-34) U/L Alkaline Phosphatase 76 (38-126) U/L C-Reactive Protein <5.0 (<10.0) mg/L Total Protein 6.4 (6.3-8.2) g/dL Albumin 3.9 (3.5-5.0) g/dL Urine Color Yellow Urine Appearance Cloudy H (Clear) Urine pH 6.0 (5.0-8.0) Ur Specific Howes 1.026 (1.001-1.035) Urine Protein Trace H (Negative) Urine Glucose (UA) Negative (Negative) Urine Ketones Negative (Negative) Urine Blood Negative (Negative) Urine Nitrite Negative (Negative) Urine Bilirubin Negative (Negative) Urine Urobilinogen 2.0 (<2.0) mg/dL Ur Leukocyte Esterase Trace H (Negative) Urine RBC 3 (0-5) /hpf Urine WBC 2 (0-5) /hpf Ur Squamous Epith Cells 6 H (0-4) /hpf Urine Mucus Occasional H (None) /hpf Disposition Clinical Impression: Ovarian cyst Disposition: HOME SELF-CARE Condition: Stable Additional Instructions: Your CT today showed a large left-sided ovarian cyst measuring 5 cm as well as a right-sided ovarian cyst measuring 2.5 cm, I recommend he follow up with her roof bolter operator Dr. Zhao to discuss this further. Pain management with Motrin. Return to the ER for any acute worsening of the pain. CT also noted some was described as fullness in the pancreas, this is of uncertain significance. Recommend follow-up with her primary care physician and possible discussion of MRI in the future for reevaluation. Is patient prescribed a controlled substance at d/c from ED?: No Referrals: Domingo Lynn Jr, [Primary Care Provider] - 1-2 days Fatou Zhao DO [Doctor of Osteopathic Medicine] - 1-2 days
[2019-07-12] MEDS ORDERED: MORPHINE SULFATE 4 MG/ML SYRINGE IVP STA (01:42)
[2019-07-12] MEDS ORDERED: SODIUM CHLORIDE 0.9% 1,000 ML IV ONE (01:42)
[2019-07-12 02:07] LABS: Basophils # (A) 0.2 k/uL (0-0.2); Basophils % (A) 1 %; Eosinophils # (A) 0.3 k/uL (0-0.7); Eosinophils % (A) 2 %; HCT 37.6 % (34.0-46.0); HGB 12.7 gm/dL (11.4-16.0); Lymphocytes # (A) 1.5 k/uL (1.0-4.8); Lymphocytes % (A) 9 %; MCHC 33.8 g/dL (31.0-37.0); MCV 94.9 fL (80.0-100.0); Mean Platelet Volume 10.4; Monocytes # (A) 0.5 k/uL (0-1.0); Monocytes % (A) 3 %; Neutrophils # (A) 13.3 k/uL (1.3-7.7); Neutrophils % (A) 84 %; Platelet Count 177 k/uL (150-450); RBC 3.97 m/uL (3.80-5.40); RDW 12.1 % (11.5-15.5); WBC 15.9 k/uL (3.8-10.6)
[2019-07-12] MEDS ORDERED: BARIUM SULFATE 450 ML ORAL.SUSP BOTTLE PO PRN (02:11)
[2019-07-12 02:18] LABS: ALT 10 U/L (4-34); AST 18 U/L (14-36); African American GFR (CKD) >90 (>60 ml/min/1.73 sqM); Albumin 3.9 g/dL (3.5-5.0); Alkaline Phosphatase 76 U/L (38-126); Anion Gap 4 mmol/L; Blood Urea Nitrogen 20 mg/dL (7-17); C Reactive Protein <5.0 mg/L (<10.0); Calcium 9.1 mg/dL (8.4-10.2); Carbon Dioxide 27 mmol/L (22-30); Chloride 105 mmol/L (98-107); Glucose 109 mg/dL (74-99); Non-African American GFR(CKD) >90 (>60 ml/min/1.73 sqM); Potassium 4.2 mmol/L (3.5-5.1); Sodium 136 mmol/L (137-145); Total Bilirubin 0.3 mg/dL (0.2-1.3); Total Protein 6.4 g/dL (6.3-8.2)
--- NOTE | 2019-07-12 07:25 | CT ---
EXAM: CT Abdomen and Pelvis Without Intravenous Contrast CLINICAL HISTORY: ITS.REASON CT Reason: RLQ pain TECHNIQUE: Axial computed tomography images of the abdomen and pelvis without intravenous contrast. CTDI is 8.1 mGy and DLP is 441.9 mGy-cm. This CT exam was performed using one or more of the following dose reduction techniques: automated exposure control, adjustment of the mA and/or kV according to patient size, and/or use of iterative reconstruction technique. COMPARISON: CT 06/04/19. FINDINGS: Limitations: Evaluation of the abdominal viscera is limited without contrast. Lung bases: Mild basilar atelectatic changes. ABDOMEN: Liver: Unremarkable. Gallbladder and bile ducts: Unremarkable. Pancreas: Fullness of the pancreatic head. Spleen: Unremarkable. Adrenals: Mild left adrenal thickening. Kidneys and ureters: No obstructing stones. No hydronephrosis. Stomach and bowel: Mild rectosigmoid wall thickening or underdistention. Mild gastric wall thickening or underdistention. PELVIS: Appendix: Normal caliber appendix. Trace right lower quadrant fluid, indeterminate significance. Bladder: Slightly thickened underdistended bladder. Reproductive: Hysterectomy. Complex 5 cm left adnexal lesion and 2.5 cm right adnexal low-density lesion. ABDOMEN and PELVIS: Intraperitoneal space: Small-moderate pelvic free fluid with increased density. Bones/joints: No acute fracture. Soft tissues: Small fat-containing periumbilical hernia. Vasculature: Atherosclerotic disease. Lymph nodes: Unremarkable. IMPRESSION: 1. Complex 5 cm left adnexal lesion and 2.5 cm right adnexal low-density lesion. Small-moderate pelvic free fluid with increased density, possible hemorrhagic or proteinaceous material. Ultrasound can further evaluate if indicated. 2. Slightly thickened underdistended bladder. 3. Mild rectosigmoid wall thickening or underdistention. 4. Fullness of the pancreatic head. MRI may be considered if there is concern for mass.
[2019-07-12] MEDS ORDERED: KETOROLAC 30 MG/ML 1 ML VIAL IVP STA (07:33)
[2019-07-12 08:25] VITALS: BP 138/74; PULSE 78; RESP 16; TEMP 98
== END 2019-07-12 08:24 | disposition home or self-care (01) ==
LOC: EC 00:31
DX: N83.201 Unspecified ovarian cyst, right side (principal); F41.9 Anxiety disorder, unspecified; F17.200 Nicotine dependence, unspecified, uncomplicated; Z79.899 Other long term (current) drug therapy; Z88.2 Allergy status to sulfonamides; Z88.1 Allergy status to other antibiotic agents; Z91.048 Other nonmedicinal substance allergy status; Z90.710 Acquired absence of both cervix and uterus; Z90.49 Acquired absence of other specified parts of digestive tract
CPT/HCPCS: 36415; 80053; 85025; 86140; 81001; 74176; 99284; 96374; 96375; 96361; J2270; J1885

== ENCOUNTER → 2019-07-22 | Outpatient (CLI) | payer OTHER ==
--- NOTE | 2019-07-23 08:11 | US ---
EXAMINATION TYPE: US pelvis complete transvag DATE OF EXAM: 07/22/2019 COMPARISON: Ultrasound dated 06/12/2019 CLINICAL HISTORY: N83.0 Follicular cyst of ovary. Pelvic pain, ovarian cysts, partial hysterectomy TECHNIQUE: Transvaginal (TV) and Transabdominal (TA) . Transabdominal sonographic images of the pel vis were acquired. Transvaginal sonographic images were medically necessary to better assess the fol lowing anatomy: ovaries Date of LMP: unknown EXAM MEASUREMENTS: Uterus: Surgically absent Endometrial Stripe: Surgically absent Right Ovary: 4.2 x 3.1 x 4.7 cm Left Ovary: 4.3 x 2.2 x 2.1 cm 1. Uterus: Surgically absent, vaginal cuff = 1.1cm 2. Endometrium: Surgically absent 3. Right Ovary: Simple cyst measures 4.3 x 3.3 x 3.4cm 4. Left Ovary: hypoechoic lesion measures 2.6 x 1.6 x 2.2cm, this appears increasing and complexity in comparison to the prior with low level homogeneous internal echoes previously measuring 3.3 x 2.2 x 3.6 cm. 5. Bilateral Adnexa: appears wnl 6. Posterior cul-de-sac: wnl IMPRESSION: 1. Smaller size but increased complexity of the left ovarian lesion, likely involuting hemorrhagic cy st or endometrioma. 2. New 4.3 cm simple cyst of the right ovary with no internal complexity. 3. Surgical absence of the uterus.
== END | disposition home or self-care (01) ==
LOC: RADUSWWP 15:35
PROVIDERS: ATTEND Obstetrics & Gynecology
DX: N83.201 Unspecified ovarian cyst, right side (principal); N83.8 Other noninflammatory disorders of ovary, fallopian tube and broad ligament; Z90.710 Acquired absence of both cervix and uterus
CPT/HCPCS: 76830; 76856

== ENCOUNTER → 2019-08-13 | Outpatient (CLI) | payer OTHER ==
--- NOTE | 2019-08-13 11:04 | MM ---
Reason for exam: screening (asymptomatic). Baseline mammogram. History: Family history of breast cancer in maternal cousin at age 40. Cyst aspiration of the left breast, 2017. Physical Findings: Nurse did not find any significant physical abnormalities on exam. MG Screening Mammo w CAD Bilateral CC and MLO view(s) were taken. The breast tissue is heterogeneously dense. This may lower the sensitivity of mammography. Right upper outer quadrant middle depth focal asymmetry and lateral left middle depth asymmetry. These results were verbally communicated with the patient and result sheet given to the patient on 08/13/19. ASSESSMENT: Incomplete: need additional imaging evaluation, BI-RAD 0 RECOMMENDATION: Special view mammogram of both breasts.
--- NOTE | 2019-08-13 11:07 | MM ---
Reason for exam: additional evaluation requested from abnormal screening. History: Family history of breast cancer in maternal cousin at age 40. Cyst aspiration of the left breast, 2017. Physical Findings: Breast exam preformed at baseline screening. MG Work Up Mamm w CAD BILAT Bilateral spot compression CC, spot compression MLO, and ML view(s) were taken. The breast tissue is heterogeneously dense. This may lower the sensitivity of mammography. Right upper outer quadrant focal asymmetry at middle depth persists on additional views. Ultrasound will be done. Left lateral asymmetry does not persist. These results were verbally communicated with the patient and result sheet given to the patient on 08/13/19. ASSESSMENT: Incomplete: need additional imaging evaluation, BI-RAD 0 RECOMMENDATION: Ultrasound of the right breast. (upper outer quadrant)
--- NOTE | 2019-08-13 11:08 | USB ---
Reason for exam: additional evaluation requested from abnormal screening. History: Family history of breast cancer in maternal cousin at age 40. Cyst aspiration of the left breast, 2017. US Breast Workup Limited RT Right limited breast ultrasound including focal area of concern, retroareolar and axilla demonstrates a 11 x 8 x 9mm lobular, cystic lesion with thin septations (cystic cluster) at 10 o'clock. These results were verbally communicated with the patient and result sheet given to the patient on 08/13/19. ASSESSMENT: Benign, BI-RAD 2 RECOMMENDATION: Return to routine screening mammogram schedule for both breasts.
== END | disposition home or self-care (01) ==
LOC: RADMAMWWP 08:13
PROVIDERS: ATTEND Obstetrics & Gynecology
DX: Z12.31 Encounter for screening mammogram for malignant neoplasm of breast (principal); R92.8 Other abnormal and inconclusive findings on diagnostic imaging of breast
CPT/HCPCS: 77066; 77067

== ENCOUNTER → 2020-09-23 | Outpatient (CLI) | payer OTHER ==
--- NOTE | 2020-09-26 10:35 | MM ---
Reason for exam: additional evaluation requested from prior study. Last mammogram was performed 1 year and 1 month ago. History: Patient is postmenopausal. Family history of breast cancer in maternal cousin at age 40. Cyst aspiration of the left breast, 2017. Took hormonal contraceptives for 10 years beginning at age 14. Physical Findings: Nurse did not find any significant physical abnormalities on exam. MG Diagnostic Mammo w CAD SILKE Bilateral CC, MLO, spot compression CC, and LM view(s) were taken. Prior study comparison: August 13, 2019, bilateral MG work up mamm w CAD BILAT. August 13, 2019, bilateral MG screening mammo w CAD. The breast tissue is heterogeneously dense. This may lower the sensitivity of mammography. Lateral central right CC view asymmetric density becomes less defined on additional views. Ultrasound recommended. Left middle depth nodularity measuring 1.1cm an 8mm at 3 o'clock and 2 o'clock respectively. These results were verbally communicated with the patient and result sheet given to the patient on 09/23/20. ASSESSMENT: Incomplete: need additional imaging evaluation, BI-RAD 0 RECOMMENDATION: Ultrasound of both breasts. (right 7 o'clock nurse palpabled, 11 o'clock focal asymmetry, left 3 o'clock and 2 o'clock)
--- NOTE | 2020-09-26 10:38 | USB ---
Reason for exam: additional evaluation requested from abnormal screening. History: Patient is postmenopausal. Family history of breast cancer in maternal cousin at age 40. Cyst aspiration of the left breast, 2017. Took hormonal contraceptives for 10 years beginning at age 14. US Breast Limited BILAT Technologist: Indy Wilkerson Right limited breast ultrasound including focal area of concern, retroareolar and axilla demonstrates a 0.5 x 0.5 x 0.2cm cystic lesion at 11 o'clock, possible mammographic correlate, 6 month follow up recommended. Left limited breast ultrasound including focal area of concern, retroareolar and axilla demonstrates a 0.9 x 0.7 x 0.4cm cystic lesion at 2 o'clock, likely mammographic correlate, a 0.8 x 0.9 x 0.4cm cystic lesion at 2 o'clock and a 0.9 x 0.6 x 0.4cm cystic lesion at 3 o'clock cyst cluster versus complex cyst, 6 month follow up recommended. These results were verbally communicated with the patient and result sheet given to the patient on 09/23/20. ASSESSMENT: Probably benign, BI-RAD 3 RECOMMENDATION: Follow-up diagnostic mammogram of both breasts in 6 months. Ultrasound of the left breast in 6 months. (3 o'clock)
== END | disposition home or self-care (01) ==
LOC: RADMAMWWP 13:54
PROVIDERS: ATTEND Obstetrics & Gynecology
DX: N60.02 Solitary cyst of left breast (principal); N60.01 Solitary cyst of right breast; Z80.3 Family history of malignant neoplasm of breast; Z78.0 Asymptomatic menopausal state
CPT/HCPCS: 77066

== ENCOUNTER → 2021-04-13 | Outpatient (CLI) | payer OTHER ==
--- NOTE | 2021-04-13 11:15 | MM ---
Reason for exam: additional evaluation requested from prior study. Last mammogram was performed 7 months ago. History: Patient is postmenopausal. Family history of breast cancer in maternal cousin at age 40. Benign cyst aspiration of the left breast, 2017. Took hormonal contraceptives for 10 years beginning at age 14. Physical Findings: Nurse Summary: two 1cm superficial nodules in the left breast (nurse dw). MG Diagnostic Mammo w CAD SILKE Bilateral CC and MLO view(s) were taken. Prior study comparison: September 23, 2020, bilateral MG diagnostic mammo w CAD SILKE. August 13, 2019, bilateral MG work up mamm w CAD BILAT. The breast tissue is heterogeneously dense. This may lower the sensitivity of mammography. Right stable anterior lateral nodular asymmetry for 6 months. Stable upper outer quadrant focal asymmetry for 6 months. Left previous lateral nodularity has resolved. Posterior central CC view asymmetric density stable for 6 months. New 5mm nodule medial. Two palpable markers on the left. These results were verbally communicated with the patient and result sheet given to the patient on 04/13/21. ASSESSMENT: Incomplete: need additional imaging evaluation, BI-RAD 0 RECOMMENDATION: Ultrasound of the left breast.
--- NOTE | 2021-04-13 11:19 | USB ---
Reason for exam: additional evaluation requested from abnormal screening. History: Patient is postmenopausal. Family history of breast cancer in maternal cousin at age 40. Benign cyst aspiration of the left breast, 2017. Took hormonal contraceptives for 10 years beginning at age 14. US Breast Limited LT Left limited breast ultrasound including focal area of concern, retroareolar and axilla demonstrates a 0.3 x 0.4 x 0.3cm cystic lesion at 3 o'clock appears more simple and smaller, benign, a 0.6 x 0.5 x 0.2cm cutaneous cyst at 4 o'clock BB, a 0.9 x 1.0 x 0.3cm cutaneous debris filled cyst at 5 o'clock BB, dermatology consult if symptomatic and a 0.5 x 0.5 x 0.2cm cystic lesion at 10 o'clock, debris filled versus complex cyst, 6 month follow up mammogram recommended. Scanned 3-10 o'clock. These results were verbally communicated with the patient and result sheet given to the patient on 04/13/21. ASSESSMENT: Probably benign, BI-RAD 3 RECOMMENDATION: Follow-up diagnostic mammogram of both breasts in 6 months. Manage patient on a clinical basis. Dermatology consult if cutaneous lesions at left 4 o'clock and 5 o'clock are symptomatic.
== END | disposition home or self-care (01) ==
LOC: RADMAMWWP 07:40
PROVIDERS: ATTEND Obstetrics & Gynecology
DX: N60.02 Solitary cyst of left breast (principal); N64.89 Other specified disorders of breast; Z80.3 Family history of malignant neoplasm of breast; Z78.0 Asymptomatic menopausal state
CPT/HCPCS: 77066

== ENCOUNTER → 2021-10-16 | Outpatient (CLI) | payer OTHER ==
--- NOTE | 2021-10-16 14:58 | MM ---
Reason for exam: additional evaluation requested from prior study. Last mammogram was performed 6 months ago. History: Patient is postmenopausal. Family history of breast cancer in maternal cousin at age 40. Benign cyst aspiration of the left breast, 2017. Took hormonal contraceptives for 10 years beginning at age 14. Physical Findings: A clinical breast exam by your physician is recommended on an annual basis and results should be correlated with mammographic findings. MG Diagnostic Mammo w CAD SILKE Bilateral CC and MLO view(s) were taken. Prior study comparison: April 13, 2021, bilateral MG diagnostic mammo w CAD SILKE. September 23, 2020, bilateral MG diagnostic mammo w CAD SILKE. The breast tissue is heterogeneously dense. This may lower the sensitivity of mammography. There is chronic nodularity bilaterally. Asymmetric breast tissue in the left breast, stable. There is no discrete abnormality. Results were given to the patient verbally at the time of the exam. ASSESSMENT: Benign, BI-RAD 2 RECOMMENDATION: Routine screening mammogram of both breasts in 1 year.
== END | disposition home or self-care (01) ==
LOC: RADMAMWWP 14:28
PROVIDERS: ATTEND Obstetrics & Gynecology
DX: R92.8 Other abnormal and inconclusive findings on diagnostic imaging of breast (principal); Z78.0 Asymptomatic menopausal state; Z80.3 Family history of malignant neoplasm of breast
CPT/HCPCS: 77066

== ENCOUNTER → 2022-10-17 | Outpatient (CLI) | payer OTHER ==
--- NOTE | 2022-10-18 08:28 | MM ---
Reason for Exam: Screening (asymptomatic). Last screening mammogram was performed 12 month(s) ago. Patient History: Menarche at age 12. First Full-Term at age 26. Hysterectomy at age 31. Postmenopausal. Hormonal Contraceptives for 10 years from age 14 until age 24. 2017, Benign Cyst Aspiration on the left side. Maternal cousin had breast cancer, age 40. Risk Values: Chelsea 5 year model risk: 0.7%. NCI Lifetime model risk: 10.9%. Prior Study Comparison: 09/23/2020 Bilateral Diagnostic Mammogram, [facility]. 04/13/2021 Bilateral Diagnostic Mammogram, [facility]. 10/16/2021 Bilateral Diagnostic Mammogram, [facility]. Tissue Density: The breast tissue is heterogeneously dense. This may lower the sensitivity of mammography. Findings: Analyzed By CAD. A few scattered tiny benign-appearing round calcifications bilaterally are redemonstrated. There is stable small circumscribed round masses in the bilateral breasts on background dense tissue. There is no suspicious new group of microcalcifications or new or enlarging suspicious mass in either breast. Overall Assessment: Benign, BI-RAD 2 Management: Screening Mammogram of both breasts in 1 year. . Patient should continue monthly self-breast exams. A clinical breast exam by your physician is recommended on an annual basis. This exam should not preclude additional follow-up of suspicious palpable abnormalities. Note on Chelsea scores and lifetime risk: 1. A Chelsea score greater than 3% is considered moderate risk. If this is the case, consider specialist referral to assess eligibility for a risk reducing agent. 2. If overall lifetime risk for the development of breast cancer is 20% or higher, the patient may qualify for future screening with alternating mammogram and breast MRI. Electronically signed and approved by: Boris Briseno M.D.
== END | disposition home or self-care (01) ==
LOC: RADMAMWWP 09:03
PROVIDERS: ATTEND Obstetrics & Gynecology
DX: Z12.31 Encounter for screening mammogram for malignant neoplasm of breast (principal); Z78.0 Asymptomatic menopausal state; Z80.3 Family history of malignant neoplasm of breast
CPT/HCPCS: 77067

== ENCOUNTER → 2022-10-30 | Outpatient (CLI) | payer OTHER ==
--- NOTE | 2022-10-30 10:12 | XR ---
EXAMINATION TYPE: XR shoulder complete 3 views LT DATE OF EXAM: 10/30/2022 Comparison: None Clinical History: 42-year-old female M25.512 Pain left shoulder Findings: AC joint appears intact. Subacromial space is preserved. No tendinous or bursal calcifications. Basil h delineation to the greater tuberosity. No acute fracture, subluxation, or dislocation. Impression: No acute osseous abnormality seen.
== END | disposition home or self-care (01) ==
LOC: RADXRMAIN 07:44
PROVIDERS: ATTEND Family Medicine
DX: M25.512 Pain in left shoulder (principal)